=== PATIENT | female | born 1995 | race Caucasian/White ===

== ENCOUNTER 2021-03-22 14:29 | Emergency (ER) | payer OTHER, SELFPAY ==
--- NOTE | ~2021-03-22 | XR_ITS ---
EXAMINATION: PORTABLE CHEST 1 VIEW CLINICAL INFORMATION: Cough . COMPARISON: 06/10/2019. TECHNIQUE: Portable frontal view of the chest was obtained. FINDINGS: The lungs are well expanded. No focal infiltrate, effusion, edema, or pneumothorax. Cardiac and mediastinal silhouettes are within normal limits for technique. No acute bony abnormality seen. XR/XR chest 1V IMPRESSION: No evidence of acute disease.
[2021-03-22 15:23] VITALS: BP 147/78; PULSE 91; RESP 18; TEMP 36.6; O2SAT 99; BMI 19.7
[2021-03-22 15:50] LABS: COVID-19 Test Negative (Negative)
--- NOTE | 2021-03-22 16:38 | ED.GENADULT ---
HPI - General Adult General Chief complaint: General Medical Stated complaint: SOB Time Seen by Provider: 03/22/21 16:38 History of Present Illness HPI narrative: Patient complains of a week of feeling ill with fever at home I headache some nausea fatigue and a specially a cough and some mild shortness of breath, it was starting to improve and yesterday she felt much better but today she had an episode of coughing and shortness of breath which made her come to the ER but the coughing spell and shortness of breath have resolved at this point she has no chest pain no shortness of breath and the only complaint is an intermittent mild very improved cough She is not vaccinated and wanted to be checked for COVID Related Data Allergies Allergy/AdvReac Type Severity Reaction Status Date / Time No Known Allergies Allergy Verified 03/22/21 15:23 [No Known Allergies*] Review of Systems Review of Systems: Positive for fever cough nausea headache fatigue body aches Negatives are no dizziness no fainting no feeling faint no stiff neck no sore throat no difficulty swallowing no chest pain no abdominal pain no vomiting no diarrhea no leg pain no calf swelling no leg swelling Yes all other systems are reviewed and are negative PMFSH Past Medical History Source: nursing notes reviewed Social History Social History Advance Directives: No Advance Directives Information Provided: Yes Patient : No Physical Exam Vital Signs: Vital Signs: Last Vital Signs Temp 98 F 03/22/21 15:23 Pulse 91 03/22/21 15:23 Resp 18 03/22/21 15:23 BP 147/78 H 03/22/21 15:23 Pulse Ox 99 03/22/21 15:23 BMI result Body Mass Index 19.7 General appearance comfortable no acute distress breathing normally speaking full sentences The eyes no redness or discharge Neck is supple Chest is clear to auscultation bilateral with full symmetric equal breath sounds Heart no murmur Extremities full range of motion x4 There is no edema there is no calf swelling or tenderness Course Course Course Narrative: Well-appearing patient, negative total COVID test, breathing at a rate of 16 a minute speaking full sentences no shortness of breath or any residence of respiratory distress now oxygen sat is 99 All symptoms are improving the episode of shortness of breath may be from moved his plugging or coughing as it resolved quickly Is here is informed that it is possible she had COVID and simply did not test positive today so I gave her 5 more days off work Medical Decision Making Lab Data Labs: Lab Results 03/22/21 Range/Units 15:30 COVID-19 ([facility]) Negative (Negative) COVID-19 Clin Com See Note Discharge Plan Discharge Clinical Impression: Acute viral syndrome Patient Disposition: Home, Self-Care Additional Instructions: We had a negative COVID today , but the test is unreliable as there needs to be enough viral load to turn it positive and as you have been sick for over a week it may be that you had COVID but or testing negative now As you are still symptomatic come give you a note for 5 days At this time you had no shortness of breath but if shortness of breath returns or any worse condition or any concerns return to the ER Stand Alone Forms: Work/School Release
== END 2021-03-22 17:32 | disposition home or self-care (01) ==
PROVIDERS: Emergency Provider Emergency Medicine Emergency Medical Services; PCP Internal Medicine
DX: B34.9 Viral infection, unspecified (principal); Z20.822 Contact with and (suspected) exposure to COVID-19
CPT/HCPCS: 71045; 87635; 99283

== ENCOUNTER 2021-09-13 12:27 | Emergency (ER) | payer OTHER, SELFPAY ==
[2021-09-13 12:38] VITALS: PULSE 65; RESP 16; TEMP 36.6; O2SAT 100; BMI 20.1
[2021-09-13 13:54] LABS: MANUAL DIFF FLAG NO
[2021-09-13 13:55] LABS: Basophils Percent Auto 0.7 % (0-2); Eosinophils Absolute Auto 0.1 X10*3/uL (0.0-0.4); Eosinophils Percent Auto 1.3 % (0-4); Hematocrit 43.8 % (37.0-47.0); Hemoglobin 14.8 g/dl (12.0-16.0); Imm Gran Abs Auto 0.01 X10*3/uL (0.00-0.03); Imm Gran Pct Auto 0.2 % (0.0-0.4); Lymphocytes Absolute Auto 1.5 X10*3/uL (1.2-4.9); Lymphocytes Percent Auto 32.6 % (20-40); Mean Corpuscular HGB Conc 33.8 g/dl (31.0-35.0); Mean Corpuscular Hemoglobin 32.8 pg (27.0-33.0); Mean Corpuscular Volume 97.1 fL (80.0-98.0); Mean Platelet Volume 10.3 fL (9.4-12.3); Monocytes Absolute Auto 0.3 X10*3/uL (0.1-1.2); Monocytes Percent Auto 5.9 % (2-11); Neutrophils Absolute Auto 2.7 x10*3/uL (2.0-8.3); Neutrophils Percent Auto 59.3 % (45-73); Platelet Count 204 X10*3/uL (160-400); Red Blood Count 4.51 X10*6/uL (4.20-5.50); Red Cell Distribution Width 11.4 % (11.0-16.0); White Blood Count 4.5 X10*3/uL (4.8-10.8)
[2021-09-13 14:11] LABS: Anion Gap 13 (12-20); Blood Urea Nitrogen 9 mg/dL (9-16); Calcium 9.9 mg/dL (8.4-10.2); Carbon Dioxide 23 mmol/L (22-29); Chloride 108 mmol/L (96-108); Creatinine Clr Calc Pharmacy 81.1; Estimated Glomerular Filt Rate > 60; Glucose Random 96 mg/dL (60-115); Potassium 4.5 mmol/L (3.3-5.1); Sodium 139 mmol/L (135-145)
[2021-09-13 14:25] LABS: Monotest Negative (Negative)
[2021-09-13 15:05] LABS: IDNOW Serial# 08D9AD1C; Strep A Nucleic Acid Negative (Negative)
[2021-09-13 15:37] VITALS: BP 120/70; PULSE 63; RESP 13; TEMP 36.9; O2SAT 100
--- NOTE | 2021-09-13 15:58 | ED.GENADULT ---
HPI - General Adult General Chief complaint: General Medical Stated complaint: fatigue, hard to swallow Time Seen by Provider: 09/13/21 15:46 Source: patient Mode of arrival: ambulatory History of Present Illness HPI narrative: 26-year-old female with no significant past medical history presenting to the ED complaining of generalized fatigue/malaise x couple weeks with right-sided lymphadenopathy and sore throat worsening since yesterday. Reports pain with swallowing, denies difficulty/inability to swallow, fever, ear pain, ear drainage, cough, sick contacts, travel Onset (ago): week(s) Related Data Previous Rx's Medication Instructions Recorded cefdinir 300 mg capsule 300 mg PO BID 7 days #14 caps 09/13/21 Allergies Allergy/AdvReac Type Severity Reaction Status Date / Time amoxicillin Allergy Shakiness Verified 09/13/21 16:12 Review of Systems Review of Systems: Constitutional: No Fever, No Chills,+fatigue, +malaise ENT/Mouth: No Ear Pain, No Nasal Congestion, No Sinus Pain, No Hoarseness, + sore throat, No Rhinorrhea, + painful swallowing Cardiovascular: No Chest Pain, No SOB Respiratory: No Cough, No Sputum, No Wheezing Gastrointestinal: No Nausea, No Vomiting, No Diarrhea, No Constipation, No Abdominal pain Genitourinary: No Dysuria, No Urinary Frequency, No Hematuria Musculoskeletal: No joint pain, No Myalgias, No Joint Swelling Skin: No Skin Lesions, No rash Neuro: No Weakness, No Numbness, No Paresthesias Yes all other systems are reviewed and are negative [facility] Past Medical History Attestation statement: The following information was validated with the patient. Social History Social History Advance Directives: No Advance Directives Information Provided: No Physical Exam ED Vital Signs: Vital Signs - 24 hr 09/13/21 12:38 09/13/21 15:37 Temperature 98 F 98.4 F Pulse Rate 65 63 Respiratory Rate 16 13 Blood Pressure 120/70 Pulse Oximetry 100 100 Oxygen Delivery Method Room Air Room Air BMI result Body Mass Index 20.1 Const General: cooperative, healthy appearing and no acute distress Orientation/consciousness: patient oriented x3 Limitations: no limitations HENMT Head: Yes normal to inspection and Yes atraumatic Ears: hearing grossly normal bilaterally, external ears normal, TM's normal bilaterally and mastoids normal General nose exam: Normal external nose present Face and sinus: Yes normal facial exam Mouth: Normal oral and palatal mucosa present Throat: Yes posterior oropharynx normal, Yes tonsils normal, Yes uvula midline, No abnormal tonsil, No peritonsillar mass and No uvula laterally displaced Eyes General: appearance normal, both eyes and all related structures EOM: EOMs intact bilaterally Neck Other: + right-sided submandibular lymphadenopathy Neck: Yes normal visual inspection, Yes full ROM, Yes no meningeal signs and No anterior neck swelling Resp Effort & Inspection: normal respiratory effort and no respiratory distress Auscultation: clear to auscultation bilaterally, no crackles, no rales and no rhonchi Cardio Rate: regular rate Heart sounds: S1 normal heart sound present and S2 normal heart sound present Skin Rashes: no rashes Wounds: no wounds Neuro General: patient oriented x3, tone normal and no meningeal signs Gait exam (Neuro): Normal gait present Extrem General: Yes normal to inspection Course Course Course Narrative: -acute on chronic leukopenia. Labs otherwise unremarkable -Monospot and strep swabs negative >> patient would like to leave prior to COVID-19 and influenza results, will contact for positive results only. Will discharge with antibiotics for unilateral lymphadenopathy -[id number]--spoke to patient and made aware of COVID-19 positive status. Discussed worrisome signs and symptoms and strict return precautions and needed close follow-up with PCP Medical Decision Making MDM Narrative Medical decision making narrative: 26-year-old female with no significant past medical history presenting to the ED complaining of generalized fatigue/malaise x couple weeks with right-sided lymphadenopathy and sore throat worsening since yesterday. On exam vital signs stable, in ED/nontoxic-appearing, unilateral right-sided submandibular lymphadenopathy noted. No intraoral swelling/tonsillar exudate, talking in complete sentences, no respiratory distress. TMs within normal limits bilaterally. Concern for viral illness vs mono vs strep pharyngitis Plan: Labs ordered in triage, Monospot, strep swab, COVID-19/influenza Medical Records Medical records reviewed: Yes I reviewed the patient's medical records. Lab Data Lab results reviewed: Yes I reviewed the patient's lab results. Result diagrams: 09/13/21 13:45 09/13/21 13:45 Labs: Lab Results 09/13/21 09/13/2122 Range/Units 13:45 13:45 13:45 WBC 4.5 L (4.8-10.8) X10*3/uL RBC 4.51 (4.20-5.50) X10*6/uL Hgb 14.8 (12.0-16.0) g/dl Hct 43.8 (37.0-47.0) % MCV 97.1 (80.0-98.0) fL MCH 32.8 (27.0-33.0) pg MCHC 33.8 (31.0-35.0) g/dl RDW 11.4 (11.0-16.0) % Plt Count 204 (160-400) X10*3/uL MPV 10.3 (9.4-12.3) fL Immature Gran % (Auto) 0.2 (0.0-0.4) % Neut % (Auto) 59.3 (45-73) % Lymph % (Auto) 32.6 (20-40) % [place] % (Auto) 5.9 (2-11) % Eos % (Auto) 1.3 (0-4) % Baso % (Auto) 0.7 (0-2) % Lymph # (Auto) 1.5 (1.2-4.9) X10*3/uL [place] # (Auto) 0.3 (0.1-1.2) X10*3/uL Eos # (Auto) 0.1 (0.0-0.4) X10*3/uL Baso # (Auto) 0.0 (0.0-0.2) X10*3/uL Abs Immat Gran (auto) 0.01 (0.00-0.03) X10*3/uL Absolute Neuts (auto) 2.7 (2.0-8.3) x10*3/uL Absolute Nucleated RBC 0.000 (0.0-0.012) X10*3/uL Nucleated RBC % (auto) 0.0 (0.0-0.2) /100WBC Sodium 139 (135-145) mmol/L Potassium 4.5 (3.3-5.1) mmol/L Chloride 108 (96-108) mmol/L Carbon Dioxide 23 (22-29) mmol/L Anion Gap 13 (12-20) BUN 9 (9-16) mg/dL Creatinine 0.82 (0.5-1.4) mg/dL Estim Creat Clear Calc 81.1 Estimated GFR > 60 Random Glucose 96 (60-115) mg/dL Calcium 9.9 (8.4-10.2) mg/dL COVID-19 ([facility]) (Negative) COVID-19 Clin Com Monoscreen (Negative) Influenza Type A ([facility]O) (Negative) Influenza Type B ([facility]O) (Negative) Influenza A & B Note S. pyogenes GrpA R[facility]O Negative (Negative) 09/13/21 09/13/21 09/13/21 Range/Units 13:45 16:01 16:01 WBC (4.8-10.8) X10*3/uL RBC (4.20-5.50) X10*6/uL Hgb (12.0-16.0) g/dl Hct (37.0-47.0) % MCV (80.0-98.0) fL MCH (27.0-33.0) pg MCHC (31.0-35.0) g/dl RDW (11.0-16.0) % Plt Count (160-400) X10*3/uL MPV (9.4-12.3) fL Immature Gran % (Auto) (0.0-0.4) % Neut % (Auto) (45-73) % Lymph % (Auto) (20-40) % [place] % (Auto) (2-11) % Eos % (Auto) (0-4) % Baso % (Auto) (0-2) % Lymph # (Auto) (1.2-4.9) X10*3/uL [place] # (Auto) (0.1-1.2) X10*3/uL Eos # (Auto) (0.0-0.4) X10*3/uL Baso # (Auto) (0.0-0.2) X10*3/uL Abs Immat Gran (auto) (0.00-0.03) X10*3/uL Absolute Neuts (auto) (2.0-8.3) x10*3/uL Absolute Nucleated RBC (0.0-0.012) X10*3/uL Nucleated RBC % (auto) (0.0-0.2) /100WBC Sodium (135-145) mmol/L Potassium (3.3-5.1) mmol/L Chloride (96-108) mmol/L Carbon Dioxide (22-29) mmol/L Anion Gap (12-20) BUN (9-16) mg/dL Creatinine (0.5-1.4) mg/dL Estim Creat Clear Calc Estimated GFR Random Glucose (60-115) mg/dL Calcium (8.4-10.2) mg/dL COVID-19 ([facility]) Positive A (Negative) COVID-19 Clin Com See Note Monoscreen Negative (Negative) Influenza Type A ([facility]ARDO) Negative (Negative) Influenza Type B ([facility]ARDO) Negative (Negative) Influenza A & B Note See Note S. pyogenes GrpA RICARDO (Negative) Discharge Plan Discharge Clinical Impression: COVID-19, Lymphadenopathy Patient Disposition: Home, Self-Care Instructions: Lymphadenopathy (ED) Additional Instructions: Cefdinir is an antibiotic please take as prescribed. If her lymph node continues to enlarge, appears to look infected please return to the ED Your blood work was reassuring today. You tested negative for strep throat and mono Your COVID-19 and influenza testing are pending at this time. We will contact you for positive results only. Please follow-up with her doctor. If symptoms persist or worsen please return to the emergency department Prescriptions: New cefdinir 300 mg capsule 300 mg PO BID 7 Days Qty: 14 0RF Referrals: Physician,None [Primary Care Provider] - 3 days Interventions: ED Discharge Assessment Last Done: 09/13/21 16:22 Discharge Date/Time: 09/13/21 16:23
[2021-09-13 16:38] LABS: COVID-19 Test Positive (Negative); IDNOW Serial# 16C4AD1C; Influenza A Negative (Negative); Influenza B2 Negative (Negative)
== END 2021-09-13 16:23 | disposition home or self-care (01) ==
PROVIDERS: Physician Assistant; Emergency Provider Emergency Medicine
DX: U07.1 COVID-19 (principal); R59.1 Generalized enlarged lymph nodes
CPT/HCPCS: 36415; 80048; 85025; 86308; 87502; 87635; 87651; 99283

== ENCOUNTER 2022-01-02 16:40 | Emergency (ER) | payer OTHER, SELFPAY ==
--- NOTE | ~2022-01-02 | XR_ITS ---
EXAMINATION: XR CHEST CLINICAL INFORMATION: Cough. COMPARISON: 03/22/2021 chest radiograph. TECHNIQUE: Frontal view of the chest was obtained. FINDINGS: No significant abnormality is noted involving the heart, lungs, mediastinum, bony thorax or soft tissues. XR/XR chest 1V IMPRESSION: No acute cardiopulmonary process.
[2022-01-02 17:10] VITALS: BP 147/91; PULSE 97; RESP 18; TEMP 37.2; O2SAT 100; BMI 20.1
[2022-01-02 19:33] VITALS: BP 129/78; PULSE 86; RESP 18; O2SAT 98
--- NOTE | 2022-01-02 19:37 | ED.SOB ---
HPI - SOB/Dyspnea General Chief Complaint: Dyspnea Stated Complaint: sob , coughing ? asthma Time Seen by Provider: 01/02/22 19:32 Source: patient Mode of arrival: ambulatory Limitations: no limitations History of Present Illness HPI Narrative: 26-year-old healthy female presents to the ER for evaluation of 1 week of chest congestion, productive cough, and upper respiratory infection symptoms. She reports her symptoms are worse at night and 1st thing in the morning. She was seen at urgent care and was [facility] earlier today and tested negative for COVID. She is unvaccinated for influenza and COVID-19. She has no known sick contacts. She has been out of work because of her symptoms. She denies any fevers. Today at home while sitting on the couch she had a sudden onset of difficulty breathing including catch her breath. She was coughing and trying to clear her throat and felt very short of breath at the time. It resolved on its own. On arrival to the ER she is saturating 100% on room air with clear lungs and speaking in full sentences. She wants to get evaluated for asthma because her mother had in the past. MD elicited complaint: shortness of breath and cough Onset (ago): week(s) (1) Context: recent illness Timing: intermittent Severity: moderate Exacerbating factors: lying flat and coughing Relieving factors: rest Associated symptoms: cough, sputum production and chest congestion Treatment prior to arrival: none Related Data Home oxygen amount: none Previous Rx's Medication Instructions Recorded cefdinir 300 mg capsule 300 mg PO BID 7 days #14 caps 09/13/21 hydrocodone-homatropine 5 mg-1.5 5 ml PO Q6H PRN cough #60 mL 01/02/22 mg/5 mL (5 mL) oral syrup (Hycodan) tobramycin 0.3 % eye drops 1 drp ophthalmic (eye) Q4H #5 mL 01/02/22 Allergies Allergy/AdvReac Type Severity Reaction Status Date / Time amoxicillin Allergy Shakiness Verified 09/13/21 16:12 Review of Systems Review of Systems: Constitutional: No Fever, No Chills ENT/Mouth: No sore throat, No Rhinorrhea, No Swallowing Difficulty Eyes: No Eye Pain, No Swelling, + Redness, +Eye discharge Cardiovascular: No Chest Pain, + SOB, No Orthopnea, No Edema Respiratory: + Cough, +Sputum, No Wheezing, + dyspnea Gastrointestinal: +Nausea, No Vomiting, No Diarrhea, No abdominal Pain Genitourinary: No Dysuria, No Urinary Frequency, No Hematuria Musculoskeletal: No joint pain, +Myalgias Skin: No Skin Lesions, No rash Neuro: No Weakness, No Numbness, No Dizziness, + Headache Psych: No Anxiety/Panic, No Depression Heme/Lymph: No Lymphadenopathy PMFSH Social History Social History Advance Directives: No Advance Directives Information Provided: No Physical Exam Vital Signs: Vital Signs: Last Vital Signs Temp 98.9 F 01/02/22 17:10 Pulse 86 01/02/22 19:33 Resp 18 01/02/22 19:33 BP 129/78 01/02/22 19:33 Pulse Ox 98 01/02/22 19:33 O2 Del Method 01/02/22 19:33 BMI result Body Mass Index 20.1 Appearance: Alert. Oriented X3. No acute distress. Eyes: Pupils equal, round and reactive to light. Bilateral conjunctival and scleral injection without any notable discharge. ENT: Pharynx normal. Moist mucous membranes. Neck: Normal inspection. Neck supple. CVS: Normal heart rate and rhythm. Pulses normal. Respiratory: No respiratory distress. Breath sounds normal. Skin: Skin warm and dry. Normal skin color. Normal skin turgor. No rashes. Extremities: No lower extremity edema. No calf swelling or tenderness. Neuro: Oriented X 3. Grossly normal, nonfocal Course Course Course Narrative: 26-year-old female presents the ER for evaluation of 1 week of cough and congestion, followed by an episode of acute onset of shortness of breath and difficulty breathing while at home earlier today which self resolved on its own. Question of a silent aspiration event versus anxiety attack. She arrives to the ER and appears well. Saturating 100% on room air and speaking complete sentences. Chest x-ray and flu swabs are pending. She had a recent negative COVID swab today at the urgent care. Reevaluation(s) Reevaluation #1: Chest x-ray is clear. Flu swab is negative. Her symptoms also likely due to viral etiology. She does appear to have bacterial conjunctivitis with bilateral scleral and conjunctival injection. Will prescribe antibiotic drops for this. Will also prescribe antitussive agent. Return precautions were discussed. Patient stable for discharge home. MDM - SOB/Dyspnea Lab Data Labs: Lab Results 01/02/22 01/02/22 01/02/22 Range/Units 19:46 19:46 19:46 Urine Color Yellow Urine Appearance Clear Urine pH 7.0 (5.0-9.0) Ur Specific [place] <= 1.005 (1.005-1.025) Urine Protein 30 (1+) H (Neg-Trace) mg/dL Urine Glucose (UA) Negative (Negative) mg/dL Urine Ketones Negative (Negative) mg/dL Urine Blood Negative (Negative) Urine Nitrite Negative (Negative) Ur Leukocyte Esterase Negative (Negative) Urine RBC 0-2 (0-2) /HPF Urine WBC 0-5 (0-5) /HPF Ur Squamous Epith Cells 0-2 (0-2) /HPF Urine Bacteria None Seen (None Seen) Hyaline Casts 0-2 (0-2) /LPF Urine Test NEGATIVE (NEGATIVE) Influenza Type A ([facility]ICARDO) Negative (Negative) Influenza Type B (RICARDO) Negative (Negative) Influenza A & B Note See Note Critical Care Time Critical Care Time Critical Care Time: No Discharge Plan Discharge Clinical Impression: Viral URI with cough Patient Disposition: Home, Self-Care Instructions: Upper Respiratory Infection (ED) Additional Instructions: Your chest x-ray was clear today. Your lungs were clear on examination, no wheezing or signs of asthma. You tested negative for influenza a and B. Your symptoms are most likely due to another viral infection. Recommend [id number] cold and flu medications as needed for your symptoms, recommend things like DayQuil and NyQuil. Rest and stay hydrated, make sure drinking plenty of water. Take the prescribed medication as needed for cough, do not drive after taking this medication can make you sleepy. If you develop new or worsening symptoms call 911 or come back to the ER for further evaluation. Prescriptions: New hydrocodone-homatropine [Hycodan] 5-1.5 mg/5 mL (5 mL) syrup 5 ml PO Q6H PRN (Reason: cough) Qty: 60 0RF Rx Instructions: Partial Fill upon patient request. tobramycin 0.3 % drops 1 drp ophthalmic (eye) Q4H Qty: 5 0RF No Action cefdinir 300 mg capsule 300 mg PO BID 7 Days Qty: 14 0RF
[2022-01-02 19:59] LABS: Appearance Urine Clear; Color Urine Yellow; Glucose Urine UA Negative (Negative); Leukocyte Esterase Urine Negative (Negative); Nitrite Urine Negative (Negative); Specific Gravity - Urine <= 1.005 (1.005-1.025); UMIC TRIGGER UACC YES; Urine Blood Negative (Negative); Urine Ketones Negative (Negative); Urine Protein 30 (1+) mg/dL (Neg-Trace)
[2022-01-02 20:01] LABS: UPreg QC Valid YES; Urine Pregnancy NEGATIVE (NEGATIVE)
[2022-01-02 20:10] LABS: Bacteria Urine None Seen (None Seen); Hyaline Casts Urine 0-2 /LPF (0-2); RBC Urine 0-2 /HPF (0-2); Squamous Epithelial Cell Urine 0-2 /HPF (0-2); WBC Urine 0-5 /HPF (0-5)
[2022-01-02 20:19] LABS: IDNOW Serial# 55D5AD1C; Influenza A Negative (Negative); Influenza B2 Negative (Negative)
== END 2022-01-02 21:22 | disposition home or self-care (01) ==
PROVIDERS: Physician Assistant; Emergency Provider Emergency Medicine
DX: J06.9 Acute upper respiratory infection, unspecified (principal); R05.9 Cough, unspecified; Z20.822 Contact with and (suspected) exposure to COVID-19
CPT/HCPCS: 71045; 81001; 81025; 87502; 99283

== ENCOUNTER 2023-04-24 13:00 | Outpatient (AMB) | payer OTHER, SELFPAY ==
--- NOTE | 2023-04-24 13:01 | A.OFFPC_ITS ---
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) Intake Note: Patient is a new patient here to establish care Media Assistant Required: No Allergies amoxicillin Allergy (Verified 04/24/23 13:05) Shakiness Medication List - Last Reconciled 04/24/23 by Ian Valero MD ascorbate calcium (vitamin C) 500 mg PO DAILY cholecalciferol (vitamin D3) 10 mcg PO DAILY magnesium 200 mg PO DAILY multivitamin 1 tab PO DAILY valerian root mg PO Tobacco use date assessed: 04/24/23 Dental Screening Dental Screen Date: 04/24/23 Did you have a dental visit in the last 12 months?: Yes Did you have a dental problem in the last 6 months where you did not have access to dental care?: No Was dental information given to patient?: Patient has dentist HPI 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 [facility] Medical History (Updated 04/24/23 @ 13:24 by Ian Valero MD) Breast mass, right Family History (Updated 04/24/23 @ 13:19 by Ian Valero MD) Maternal Grandfather Lung cancer Father Drug addiction Social History (Updated 04/24/23 @ 13:19 by Ian Valero MD) Housing: Apartment Alcohol intake: never Patient Tobacco Use Status: Never used Tobacco service: No Cognitive needs: No Hearing needs: No Vision needs: No Questionnaire PHQ-9 Over the last 2 weeks, how often have you been bothered by any of the following problems? 1. Little interest or pleasure in doing things: not at all 2. Feeling down, depressed, or hopeless: not at all 3. Trouble falling or staying asleep, or sleeping too much: not at all 4. Feeling tired or having little energy: not at all 5. Poor appetite or overeating: not at all 6. Feeling bad about yourself - or that you are a failure or have let yourself or your family down: not at all 7. Trouble concentrating on things, such as reading the newspaper or watching television: not at all 8. Moving or speaking so slowly that other people could have noticed. Or the opposite - being so fidgety or restless that you have been moving around a lot more than usual: not at all 9. Thoughts that you would be better off or of hurting yourself in some way: not at all Total score: 0 Depression Screening Interpretation: Negative Depression Screening Done: Yes Source: Developed by Drs. Dalton Ring, Ann-Marie Guerrero, Jose Armando Richardson and colleagues, with an educational monica from [employer]. Thrive Questionnaire Date Thrive assessed: 04/24/23 I am a: Patient What is your living situation today?: I have a steady place to live Within the past 12 months, did the food you bought not last and you didn't have the money to get more?: Never true Within the past 12 months, did you worry whether your food would run out before you got money to buy more?: Never true Do you have trouble paying for medicines?: No Do you have trouble getting transportation to medical appointments?: No Do you have trouble paying your heating and electricity bill?: No Do you have trouble taking care of your child, family member or friend?: No Do you have trouble with day-to-day activities such as bathing, preparing meals, shopping, managing finances, etc.?: No Are you currently unemployed and looking for a job?: No Are you interested in more education?: No Please select the resources that you would like help with: None THRIVE Score: 0 AUDIT C Alcohol Use Questionnaire (AUDIT-C) 1. How often do you have a drink containing alcohol?: Never 3. How often do you have six or more drinks on one occasion?: Never Total Score: 0 UMBERTO-7 AMB Questionnaire UMBERTO-7 Date UMBERTO - 7 assessed: 04/24/23 Feeling nervous, anxious, or on edge: 0 = Not at all Not being able to stop or control worryin = Not at all Worrying too much about different things: 0 = Not at all Trouble relaxin = Not at all Being so restless that it is hard to sit still: 0 = Not at all Becoming easily annoyed or irritable: 0 = Not at all Feeling afraid as if something awful might happen: 0 = Not at all Total UMBERTO-7 score (0-4 normal; 5-9 mild; 10-14 moderate; 15-21 severe): 0 Source: Developed by Drs. Dalton Ring, Ann-Marie Guerrero, Jose Armando Richardson and colleagues, with an educational monica from [employer]. Physical exam (Primary Care) Vital Signs: Last Vital Signs Pulse 68 04/24/23 13:02 BP 126/68 04/24/23 13:02 Pulse Ox 100 04/24/23 13:02 Oxygen Delivery Method Room Air 04/24/23 13:02 BMI result Body Mass Index 21.0 Tobacco/Smoking Status: Tobacco use Status Tobacco use date assessed 04/24/23 04/24/23 13:07 Patient Tobacco Use Status Never used Tobacco 04/24/23 13:19 PHQ-9: PHQ-9 Score PHQ-9: Total score 0 04/24/23 13:12 Depression Screening Interpretation: Negative Thrive Assessment: Date of Thrive Assessment Date Thrive assessed 04/24/23 04/24/23 13:07 Const General: alert; No acute distress Eyes Conjunctivae: conjunctivae normal Resp Auscultation: clear to auscultation bilaterally Cardio Rate: regular rate Rhythm: regular rhythm GI Inspection: Yes normal to inspection Extrem General: Yes normal to inspection and No edema Assessment and Plan Assessment & Plan (1) Allergic rhinitis: Code(s): J30.9 - Allergic rhinitis, unspecified (2) SOB (shortness of breath): Code(s): R06.02 - Shortness of breath (3) Cervical cancer screening: Code(s): Z12.4 - Encounter for screening for malignant neoplasm of cervix Orders: Orders Rast Allergen Today J30.9 - Allergic rhinitis, unspecified PFT pulmonary function test Today R06.02 - Shortness of breath Referrals CONTACT LENS POLISHER Referral Z12.4 - Encounter for screening for malignant neoplasm of cervix Coding Level of Care Code New Pt Level 4 (12240) Diagnoses Allergic rhinitis J30.9 SOB (shortness of breath) R06.02 Cervical cancer screening Z12.4
[2023-04-24 13:02] VITALS: BP 126/68; PULSE 68; O2SAT 100; BMI 21.0
== END 2023-04-24 13:36 | disposition home or self-care (01) ==
PROVIDERS: Visit Provider Internal Medicine
DX: J30.9 Allergic rhinitis, unspecified (principal); R06.02 Shortness of breath; Z12.4 Encounter for screening for malignant neoplasm of cervix
CPT/HCPCS: 99204

== ENCOUNTER 2023-10-24 12:29 | Outpatient (REF) | payer OTHER, SELFPAY ==
--- NOTE | ~2023-10-24 | US_ITS ---
EXAMINATION: US OBSTETRICAL ULTRASOUND CLINICAL INFORMATION: for dating and viability. COMPARISON: None available. LMP: 09/08/2023. Gestational age by maternal dates is 6 weeks and 4 days. Estimated date of delivery by maternal dates is 06/14/2024. TECHNIQUE: Ultrasound of the maternal pelvis is performed using transabdominal transducer. M-mode Doppler is also performed. FINDINGS: There is a single intrauterine gestational sac with visible yolk sac, embryo/fetus, and cardiac activity. There is no significant subchorionic hemorrhage or hematoma. HR: 135 beats per minute. CRL (crown rump length): 0.83 cm (6 weeks and 6 days +/- 4 days). KARLOS (estimated date of delivery): 06/12/2024 +/- 4 days. MATERNAL ADNEXA: The right maternal ovary measures 2.8 x 1.2 x 1.6 cm. The left maternal ovary measures 2.4 x 1.9 x 2.3 cm. A 1.7 cm benign, simple left ovarian follicle is incidentally noted. This requires no imaging follow-up. There is no significant maternal adnexal mass. No maternal pelvic ascites. US/US OB <= 14 weeks fetus IMPRESSION: 1. Single intrauterine gestation with ultrasound gestational age of 6 weeks and 6 days +/- 4 days. 2. Estimated date of delivery is 06/12/2024 +/- 4 days. 3. No maternal adnexal mass or pelvic ascites. Electronically signed by: Oneal Cowan MD 11/12/2023 03:50 PM EDT
== END 2023-10-24 12:30 | disposition home or self-care (01) ==
LOC: HO.US 12:29
PROVIDERS: Visit Provider Advanced Practice Midwife
DX: Z34.91 Encounter for supervision of normal pregnancy, unspecified, first trimester (principal); Z3A.01 Less than 8 weeks gestation of pregnancy
CPT/HCPCS: 76801

== ENCOUNTER 2023-12-25 13:12 | Outpatient (AMB) | payer OTHER, SELFPAY ==
--- NOTE | 2023-12-25 13:15 | MHC.PC.OV ---
Vital Signs 12/25/23 13:18 Height 5 ft 2 in Weight 129 lb BMI 23.6 BP 110/72 Blood Pressure Location Lt brachial Position Sitting Pulse 75 Pulse Source Pulse Oximeter Pulse Oximetry (%) 99 Oxygen Delivery Method Room Air Intake Visit Reasons: Physical Intake Note: Patient is here today for a physical. Pt decline flu shot today. 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 Development Director Required: No Medical Administrator: Not Required per policy Accompanied by: Self / Same As Patient Allergies amoxicillin Allergy (Verified 12/25/23 13:18) Shakiness Medication List - Last Reconciled 12/25/23 by Ian Valero MD cholecalciferol (vitamin D3) 10 mcg PO DAILY doxylamine succinate (Unisom (doxylamine)) 25 mg PO BEDTIME PRN ferrous gluconate 324 mg PO DAILY magnesium 200 mg PO DAILY multivitamin 1 tab PO DAILY PNV #[id number] acid-dha 35 mg iron-5 mg iron-1 mg 1 cap PO BEDTIME valerian root mg PO Tobacco use date assessed: 12/25/23 Dental Screening Dental Screen Date: 04/24/23 HPI Physical HPI Details 28-year-old female with allergic rhinitis coming in for physical exam last seen in 05/06/2023. Review of the notes had an ultrasound done in November 12 2023 single intrauterine gestation with ultrasound gestational age of 6 weeks and 6 days EDC of 06/12/2024. 6 weeks ago passed out.. occ dizzy, no fevers, PFSH Medical History (Updated 12/25/23 @ 13:35 by Ian Valero MD) Breast mass, right Surgical History (Updated 12/25/23 @ 13:22 by MYRON Adhikari) No pertinent past surgical history Family History (Updated 12/25/23 @ 13:22 by MYRON Adhikari) Maternal Grandfather Lung cancer Father Drug addiction Other Substance use disorder Social History Housing: Apartment Alcohol intake: never Patient Tobacco Use Status: Never used Tobacco e-Cigarette/Vaping Use: Never Used Second Hand Smoke Exposure: No service: No Current occupational status: unemployed Cognitive needs: No Hearing needs: No Vision needs: No Questionnaire PHQ-9 Over the last 2 weeks, how often have you been bothered by any of the following problems? 1. Little interest or pleasure in doing things: not at all 2. Feeling down, depressed, or hopeless: not at all 3. Trouble falling or staying asleep, or sleeping too much: not at all 4. Feeling tired or having little energy: not at all 5. Poor appetite or overeating: not at all 6. Feeling bad about yourself - or that you are a failure or have let yourself or your family down: not at all 7. Trouble concentrating on things, such as reading the newspaper or watching television: not at all 8. Moving or speaking so slowly that other people could have noticed. Or the opposite - being so fidgety or restless that you have been moving around a lot more than usual: not at all 9. Thoughts that you would be better off or of hurting yourself in some way: not at all Total score: 0 Depression Screening Interpretation: Negative Depression Screening Done: Yes Source: Developed by Drs. Dalton Ring, Ann-Marie Guerrero, Jose Armando Richardson and colleagues, with an educational monica from [employer]. Thrive Questionnaire Date Thrive assessed: 04/24/23 I am a: Patient What is your living situation today?: I have a steady place to live Within the past 12 months, did the food you bought not last and you didn't have the money to get more?: I choose not to answer this question Within the past 12 months, did you worry whether your food would run out before you got money to buy more?: I choose not to answer this question Do you have trouble paying for medicines?: I choose not to answer this question Do you have trouble getting transportation to medical appointments?: I choose not to answer this question Do you have trouble paying your heating and electricity bill?: I choose not to answer this question Do you have trouble taking care of your child, family member or friend?: I choose not to answer this question Do you have trouble with day-to-day activities such as bathing, preparing meals, shopping, managing finances, etc.?: I choose not to answer this question Are you currently unemployed and looking for a job?: I choose not to answer this question Are you interested in more education?: I choose not to answer this question Please select the resources that you would like help with: None Currently or been in a relationship where the following occur: I choose not to answer THRIVE Score: 0 AUDIT C Alcohol Use Questionnaire (AUDIT-C) 1. How often do you have a drink containing alcohol?: Never Total Score: 0 UMBERTO-7 AMB Questionnaire UMBERTO-7 Date UMBERTO - 7 assessed: 12/25/23 Feeling nervous, anxious, or on edge: 1 = Several days Not being able to stop or control worryin = Not at all Worrying too much about different things: 0 = Not at all Trouble relaxin = Several days Being so restless that it is hard to sit still: 1 = Several days Becoming easily annoyed or irritable: 1 = Several days Feeling afraid as if something awful might happen: 1 = Several days Total UMBERTO-7 score (0-4 normal; 5-9 mild; 10-14 moderate; 15-21 severe): 5 Source: Developed by Drs. Dalton Ring, Ann-Marie Guerrero, Jose Armando Richardson and colleagues, with an educational moinca from [employer]. Review of Systems Const Reports poor appetite and Denies weakness Eyes Denies no additional complaints ENT Reports Normal hearing present, Reports dizziness, Denies nasal congestion, Denies tinnitus and Denies sore throat Card Denies chest pain, Reports syncope, Denies rapid heart rate and Denies dyspnea Resp Denies cough and Denies dyspnea GI Denies change in stool character, Reports constipation, Denies diarrhea, Reports nausea and Denies vomiting Denies urinary frequency, Denies difficulty voiding and Denies dysuria Neuro Reports Normal hearing present, Denies confusion, Reports dizziness, Reports syncope and Denies weakness Psych Denies confusion Physical exam (Primary Care) Vital Signs: Last Vital Signs Pulse 75 12/25/23 13:18 BP 110/72 12/25/23 13:18 Pulse Ox 99 12/25/23 13:18 Oxygen Delivery Method Room Air 12/25/23 13:18 BMI result Body Mass Index 23.6 Tobacco/Smoking Status: Tobacco use Status Tobacco use date assessed 12/25/23 12/25/23 13:25 Patient Tobacco Use Status Never used Tobacco 12/25/23 13:16 e-Cigarette/Vaping Use Never Used 12/25/23 13:25 PHQ-9: PHQ-9 Score PHQ-9: Total score 0 12/25/23 13:35 Depression Screening Interpretation: Negative Thrive Assessment: Date of Thrive Assessment Date Thrive assessed 04/24/23 12/25/23 13:16 Currently or been in a relationship where the following occur: I choose not to answer Const General: No confusion Orientation/consciousness: No confusion HENMT Head: Yes normocephalic Ears: external ears normal and TM's normal bilaterally Face and sinus: Yes normal facial exam Mouth: moist mucous membranes Throat: Yes tonsils normal Eyes Conjunctivae: conjunctivae normal Pupils: Equal, round and reactive pupils present and Pupil accommodation reflex normal Direct Ophthalmoscopy: normal light reflex Neck Neck: No lymphadenopathy Thyroid: Thyroid normal Chest Chest palpation & inspection: normal inspection of the chest Resp Effort & Inspection: normal respiratory effort and no audible wheezes Auscultation: clear to auscultation bilaterally, no crackles, no wheezes and lung sounds not diminished Cardio Rate: regular rate Rhythm: regular rhythm Peripheral pulses: radial pulses present and dorsalis pedis present GI Palpation (GI): no masses Auscultation: normal bowel sounds and normoactive bowel sounds Rectal Exam - Female: deferred Skin General skin exam: no rashes or lesions noted Rashes: no rashes Neuro General: No confusion Cranial nerves: Yes Equal, round and reactive pupils present and Yes Normal hearing present Cognition (Neuro): normal cognition Gait exam (Neuro): Normal gait present Motor exam (neuro): 5/5 motor strength present throughout Deep tendon reflexes (DTR's): Right brachioradialis reflex intensity grade: 2+, Left brachioradialis reflex intensity grade: 2+, Right patellar reflex intensity grade: 2+ and Left patellar reflex intensity grade: 2+ Extrem General: No edema Coding Level of Care Code Est Pt Prev Care 18-39y(50115) Diagnoses Annual physical exam Z00.00 Allergic rhinitis due to other allergic trigger, unspecified seasonality J30.89 Allergic rhinitis seasonality: unspecified Allergic rhinitis trigger: other Early stage of Z34.90 Assessment & Plan Assessment & Plan (1) Annual physical exam: Code(s): Z00.00 - Encounter for general adult medical examination without abnormal findings Category: Medical Plan: Patient is advised to eat healthy, keep well hydrated, keep active and have adequate sleep. (2) Allergic rhinitis: Code(s): J30.9 - Allergic rhinitis, unspecified Category: Medical Qualifiers: Allergic rhinitis seasonality: unspecified Allergic rhinitis trigger: other Qualified Code(s): J30.89 - Other allergic rhinitis Plan: Stable (3) Early stage of : Code(s): Z34.90 - Encounter for supervision of normal , unspecified, unspecified trimester Category: Medical Plan: Patient had an ultrasound done in October 22 showing 6 weeks. Patient is being followed up by obstetric
[2023-12-25 13:18] VITALS: BP 110/72; PULSE 75; O2SAT 99; BMI 23.6
== END 2023-12-25 13:49 | disposition home or self-care (01) ==
PROVIDERS: PCP Internal Medicine; Visit Provider Internal Medicine
DX: Z00.00 Encounter for general adult medical examination without abnormal findings (principal); J30.89 Other allergic rhinitis; Z34.90 Encounter for supervision of normal pregnancy, unspecified, unspecified trimester

== ENCOUNTER → 2023-12-25 13:12 | Outpatient (BNVA) | payer OTHER, SELFPAY | PROVIDERS: PCP Internal Medicine; Visit Provider Internal Medicine | DX: Z00.00 Encounter for general adult medical examination without abnormal findings (principal); J30.89 Other allergic rhinitis | CPT/HCPCS: 96127; 99395 ==